=== PATIENT | male | born 1960 | race Caucasian/White ===

== ENCOUNTER 2021-11-21 21:01 | Emergency (ER) | payer OTHER ==
[2021-11-21] MEDS ORDERED: Sulfamethoxazole/Trimethoprim 800-160 MG Tab PO ONE (21:02)
== END 2021-11-21 21:54 | disposition home or self-care (01) ==
LOC: FB.ED 21:01
DX: L03.116 Cellulitis of left lower limb (principal)
CPT/HCPCS: 99283; A9270